=== PATIENT | male | born 1970 | race American Indian/Alaskan Native ===

== ENCOUNTER 2018-10-25 09:29 | Emergency (ER) | payer OTHER ==
[2018-10-25 09:39] VITALS: BMI 31.1
[2018-10-25 09:40] VITALS: O2SAT 100
--- NOTE | 2018-10-25 10:02 | C.PDOC ---
History Of Present Illness 48 y/o male presents to the ED for evaluation of sore throat for 4 days. No improvement after trying OTC medications. He also reports dry cough. Otherwise patient denies any fever, chills, myalgias, chest pain, or SOB. + Sick contact with strep. Patient did not receive a flu shot this year. Time Seen by Provider: 10/25/18 09:42 Chief Complaint (Nursing): ENT Problem History Per: Patient History/Exam Limitations: no limitations Onset/Duration Of Symptoms: Days (x4) Current Symptoms Are (Timing): Still Present Location Of Pain: Throat Associated Symptoms: Cough Past Medical History Reviewed: Historical Data, Nursing Documentation, Vital Signs Vital Signs: Last Vital Signs Temp 98.1 F 10/25/18 09:38 Pulse 86 10/25/18 09:38 Resp 18 10/25/18 09:38 BP 123/85 10/25/18 09:38 Pulse Ox 100 10/25/18 09:38 - Medical History PMH: No Chronic Diseases Surgical History: Hernia Repair Family History: States: Unknown Family Hx - Social History Hx Tobacco Use: No Hx Alcohol Use: No Hx Substance Use: No - Immunization History Hx Tetanus Toxoid Vaccination: No Hx Influenza Vaccination: No Hx Pneumococcal Vaccination: No Review Of Systems Except As Marked, All Systems Reviewed And Found Negative. Constitutional: Negative for: Fever, Chills, Other (body aches) ENT: Positive for: Throat Pain Cardiovascular: Negative for: Chest Pain Respiratory: Positive for: Cough. Negative for: Shortness of Breath, Sputum Gastrointestinal: Negative for: Vomiting, Diarrhea Neurological: Negative for: Weakness, Dizziness Physical Exam - Physical Exam Appears: Non-toxic, No Acute Distress Skin: Warm, Dry, No Rash Head: Atraumatic, Normacephalic Eye(s): bilateral: Normal Inspection, PERRL, EOMI Oral Mucosa: Moist Throat: Erythema (+pharyngeal erythema), No Exudate, Other (Mild swelling, uvula is midline, normal voice) Neck: Supple Lymphatic: Adenopathy (+submental node, tender to palpation) Cardiovascular: Rhythm Regular, No Murmur Respiratory: Normal Breath Sounds, No Rales, No Rhonchi, No Wheezing Extremity: Bilateral: Atraumatic, Normal ROM Pulses: Left Radial: Normal, Right Radial: Normal Neurological/Psych: Oriented x3 Gait: Steady ED Course And Treatment O2 Sat by Pulse Oximetry: 100 (RA) Pulse Ox Interpretation: Normal Medical Decision Making Medical Decision Making: Impression: Pharyngitis Plan: - 12 mg PO Decadron - 600 mg PO Motrin Patient will be discharged home with RX for Amoxicillin and Motrin. Disposition Counseled Patient/Family Regarding: Diagnosis, Need For Followup, Rx Given - Disposition Disposition: HOME/ ROUTINE Disposition Time: 10:04 Condition: IMPROVED Prescriptions: Amoxicillin [Amoxil 500 mg Cap] 500 mg PO BID #20 cap Ibuprofen [Motrin] 600 mg PO Q6 #30 tab Instructions: Sore Throat, Adult (DC) Forms: [employer] (Qatari) - Clinical Impression Clinical Impression: Pharyngitis - Scribe Statement The provider has reviewed the documentation as recorded by the Paris Wallace Provider Attestation: All medical record entries made by the Paris were at my direction and personally dictated by me. I have reviewed the chart and agree that the record accurately reflects my personal performance of the history, physical exam, medical decision making, and the department course for this patient. I have also personally directed, reviewed, and agree with the discharge instructions and disposition.
[2018-10-25 10:30] VITALS: BP 124/82; PULSE 82; RESP 20; TEMP 98.2
== END 2018-10-25 10:30 | disposition home or self-care (01) ==
LOC: C.ER 09:29
DX: J02.9 Acute pharyngitis, unspecified (principal)
CPT/HCPCS: 99283; J8540